=== PATIENT | female | born 1955 | race Caucasian/White ===

== ENCOUNTER 2019-02-19 09:08 | Emergency (ER) | payer BC ==
[2019-02-19] MEDS ORDERED: Sodium Chloride 0.9% 1,000 ML IV ONE (09:16)
[2019-02-19] MEDS ORDERED: Metoclopramide 10 MG/2 ML SDV IVPUSH ONE (09:16)
[2019-02-19 09:48] LABS: CHLORIDE,CL 100 mmol/L (101-111); SODIUM,NA 137 mmol/L (135-145)
[2019-02-19] MEDS ORDERED: Iopamidol 612 MG/ML 75 ML Bottle IVPUSH ONE (09:50)
[2019-02-19] MEDS ORDERED: Morphine 2 MG/ML Syringe IVPUSH ONE ×2 (09:58→10:57)
--- NOTE | 2019-02-19 10:46 | EDM.PDOC ---
Scribed by Amita Rolle 02/19/19 1046 for Jay Galvez PA ED HPI GENERAL MEDICAL PROBLEM - General Chief Complaint: Gastrointestinal Problem Stated Complaint: VOMITTING SINCE YEST Time Seen by Provider: 02/19/19 09:25 Source of Information: Reports: Patient, RN, RN Notes Reviewed History Limitations: Reports: No Limitations - History of Present Illness INITIAL COMMENTS - FREE TEXT/NARRATIVE: Patient is a 63-year-old female who presents to generalized abdominal cramping and frequent vomiting. Abdominal pain/cramping currently 8/10, but was 10/10 before coming in. Last medication was yesterday at 1300. She had a small soft bowel movement today. Onset: Gradual Duration: Constant Location: Reports: Abdomen Quality: Reports: Ache Severity: Moderate Improves with: Reports: None Worsens with: Reports: None Associated Symptoms: Reports: No Other Symptoms Epigastric Pain Score (Numeric/FACES): 8 - Related Data Allergies Allergy/AdvReac Type Severity Reaction Status Date / Time moxifloxacin Allergy Unknown unknown Verified 02/19/19 09:15 simvastatin Allergy Unknown unknown Verified 02/19/19 09:15 Home Meds: Home Meds Cetirizine [ZyrTEC] 1 tab PO 03/22/13 [History] Multivitamin with Minerals [Multiple Vitamin] 03/22/13 [History] diphenhydrAMINE [Benadryl] 25 mg PO BEDTIME PRN 03/22/13 [History] Estrogens, Conjugated [Premarin Vaginal Crm] 1 dose TOP ASDIRECTED 02/19/19 [ History] Ondansetron HCl [Ondansetron] 8 mg PO ASDIRECTED 02/19/19 [History] Past Medical History - Past Surgical History GI Surgical History: Reports: Bariatric Procedure, Hernia Repair/Other Female Surgical History: Reports: Section (x3) Social & Family History - Tobacco Use Smoking Status *Q: Never Smoker - Caffeine Use Caffeine Use: Reports: Coffee, Soda - Alcohol Use Number of Drinks Per Day: 0 - Recreational Drug Use Recreational Drug Use: No ED ROS GENERAL - Review of Systems Review Of Systems: Comprehensive ROS is negative, except as noted in HPI. ED EXAM, GI/ABD - Physical Exam Exam: See Below Exam Limited By: No Limitations General Appearance: Alert, WD/WN, No Apparent Distress Eyes: Bilateral: Normal Appearance Ears: Normal External Exam, Normal Canal, Hearing Grossly Normal, Normal TMs Nose: Normal Inspection, Normal Mucosa, No Blood Throat/Mouth: Normal Inspection, Normal Lips, Normal Teeth, Normal Gums, Normal Oropharynx, Normal Voice, No Airway Compromise Head: Atraumatic, Normocephalic Neck: Normal Inspection, Supple, Non-Tender, Full Range of Motion Respiratory/Chest: No Respiratory Distress, Lungs Clear, Normal Breath Sounds, No Accessory Muscle Use, Chest Non-Tender Cardiovascular: Normal Peripheral Pulses, Regular Rate, Rhythm, No Edema, No Gallop, No JVD, No Murmur, No Rub GI/Abdominal Exam: Other (diffuse tenderness. Hypoactive bowel sounds.) (Female) Exam: Deferred Rectal (Female) Exam: Deferred Back Exam: Normal Inspection, Full Range of Motion, NT Extremities: Normal Inspection, Normal Range of Motion, Non-Tender, Normal Capillary Refill, No Pedal Edema Neurological: Alert, Oriented, CN II-XII Intact, Normal Cognition, Normal Gait, Normal Reflexes, No Motor/Sensory Deficits Psychiatric: Normal Affect, Normal Mood Skin Exam: Warm, Dry, Intact, Normal Color, No Rash Lymphatic: No Adenopathy Course - Vital Signs Last Recorded V/S: Last Vital Signs Temp 36.9 C 02/19/19 11:03 Pulse 85 02/19/19 11:03 Resp 18 02/19/19 11:03 BP 139/82 02/19/19 11:03 Pulse Ox 100 02/19/19 11:03 - Orders/Labs/Meds Orders: Active Orders 24 hr Category Date Time Status UA RFX FELICIA AND CULT IF INDIC [URIN] Urgent Lab 02/19/19 09:15 Ordered Labs: Laboratory Tests 02/19/19 02/19/19 02/19/19 Range/Units 09:21 09:21 09:21 WBC 11.4 H (5.0-10.0) 10^3/uL RBC 4.92 (4.2-5.4) 10^6/uL Hgb 15.1 (12.0-16.0) g/dL Hct 44.4 (37.0-47.0) % MCV 90.2 (80-100) fL MCH 30.7 (27.0-34.0) pg MCHC 34.0 (33.0-35.0) g/dL Plt Count 242 (150-450) 10^3/uL Neut % (Auto) 82.8 H (42.2-75.2) % Lymph % (Auto) 13.0 L (20.5-50.1) % [place] % (Auto) 4.0 (2-8) % Eos % (Auto) 0.1 L (1.0-3.0) % Baso % (Auto) 0.1 (0.0-1.0) % Sodium 137 (135-145) mmol/L Potassium 4.0 (3.6-5.0) mmol/L Chloride 100 L (101-111) mmol/L Carbon Dioxide 25.0 (21.0-31.0) mmol/L Anion Gap 16.0 BUN 17 (7-18) mg/dL Creatinine 0.9 (0.6-1.3) mg/dL Est Cr Clr Drug Dosing 49.53 mL/min Estimated GFR (MDRD) > 60 BUN/Creatinine Ratio 18.88 Glucose 232 H (74-105) mg/dL Calcium 9.7 (8.4-10.2) mg/dl Total Bilirubin 0.6 (0.2-1.0) mg/dL AST 27 (10-42) IU/L ALT 19 (10-60) IU/L Alkaline Phosphatase 65 (42-121) IU/L Total Protein 8.7 H (6.7-8.2) g/dl Albumin 4.7 (3.2-5.5) g/dl Globulin 4.0 Albumin/Globulin Ratio 1.18 Amylase 47 (28-100) U/L Lipase 31 (22-51) U/L Meds: Medications Discontinued Medications Generic Name Dose Route Start Last Admin Trade Name Freq PRN Reason Stop Dose Admin Sodium Chloride 1,000 mls @ 999 mls/hr 02/19/19 09:16 02/19/19 09:25 Normal Saline IV 02/19/19 10:16 999 mls/hr .BOLUS ONE Administration Iopamidol 75 ml 02/19/19 09:50 02/19/19 10:18 Isovue-300 (61%) IVPUSH 02/19/19 09:51 75 ml ONETIME ONE Administration Metoclopramide HCl 10 mg 02/19/19 09:16 02/19/19 09:25 Reglan IVPUSH 02/19/19 09:17 10 mg ONETIME ONE Administration Morphine Sulfate 2 mg 02/19/19 09:58 02/19/19 10:02 Morphine IVPUSH 02/19/19 09:59 2 mg ONETIME ONE Administration Morphine Sulfate 2 mg 02/19/19 10:57 02/19/19 11:00 Morphine IVPUSH 02/19/19 10:58 2 mg ONETIME ONE Administration Departure - Departure Time of Disposition: 11:09 Disposition: DC/Tfer to Acute Hospital 02 Condition: Fair Clinical Impression: Small bowel obstruction - Discharge Information *PRESCRIPTION DRUG MONITORING PROGRAM REVIEWED*: Not Applicable *COPY OF PRESCRIPTION DRUG MONITORING REPORT IN PATIENT JACQUIE: Not Applicable Forms: Interfacility Transfer EMTALA Care Plan Goals: Discussed the examination, lab and CT results with Dr. Womack (Hospitalist with [facility] in [place]). Dr. Womack accepted the patient for continued evaluation and management as an inpatient at [facility]. The patient will be transported by [facility]. - My Orders Last 24 Hours: My Active Orders 02/19/19 09:15 UA RFX FELICIA AND CULT IF INDIC [URIN] Urgent - Assessment/Plan Last 24 Hours: My Active Orders 02/19/19 09:15 UA RFX FELICIA AND CULT IF INDIC [URIN] Urgent I have read and agree with the documentation that has been completed regarding this visit. By signing this record, I attest that the documentation was completed in my physical presence and is an accurate record of the encounter.
--- NOTE | 2019-02-19 10:47 | CT ---
EXAMINATION: Abdomen Pelvis w Cont SEX: Female AGE: 63 years CLINICAL HISTORY: 63-year-old 146 pound female with diffuse ABDOMINAL PAIN, EMESIS (greater than 30 times in the past 24 hours, and WBC 11,400 who significantly has had multiple ABDOMINAL SURGERIES (3 sections; gastric bypass surgery 2015; and ventral wall hernia repair 2018). Scan technique: Volume acquisition of data emergency CT scan abdomen and pelvis obtained without oral ingestion but during intravenous infusion 75 cc nonionic Isovue contrast (3 cc/s via injector) while patient was lying supine on the Siemens multislice scanner [place], [place]. All data archived in the PACS system for storage, reformatting axial/sagittal/coronal planes and study. Interpretation: ABNORMAL. *Evidence of high-grade mechanical small bowel obstruction (SBO). Probable adhesions. 1. Abnormal dilatation multiple loops of small bowel, mostly ileum mid and right abdomen, with differential air-fluid levels. 2. Evidence gastric bypass surgery (surgical suture line across the proximal third of the stomach isolating the fundus). 3. Normal caliber colon without obvious mass or diverticular disease. No abscess or inflammatory "dirty" peritoneal fat. 4. No abdominal or pelvic mass lesion, no mesenteric ischemia, mesenteric or rectoperineal lymphadenopathy, ascites or free intraperitoneal air. Mesh anterior abdominal wall but no current evidence ventral wall or inguinal hernia. 5. Normal caliber abdominal aorta. No aneurysm or dissection. 6. Distended gallbladder, liver, spleen, pancreas, adrenal glands and kidneys unremarkable. No sign of renal cortical mass lesion, nephrolithiasis or obstructive uropathy. 7. Normal cardiac silhouette. Lung bases clear i.e. no infiltrate, atelectasis, pneumonia or pleural effusion.
== END 2019-02-19 11:50 ==
LOC: DL.ED 09:08
DX: K56.609 Unspecified intestinal obstruction, unspecified as to partial versus complete obstruction (principal); Z88.1 Allergy status to other antibiotic agents; Z88.8 Allergy status to other drugs, medicaments and biological substances; Z98.84 Bariatric surgery status
CPT/HCPCS: 36415; 74177; 80053; 82150; 83690; 85025; 96361; 96374; 96375; 96376; 99285; J2270; J2765; J7030; Q9967